=== PATIENT | female | born 1995 | race Caucasian/White ===

== ENCOUNTER 2018-02-17 11:32 | Inpatient (IN) ==
--- NOTE | 2018-02-17 12:22 | ED ---
History of Present Illness Primary Care Physician: No Primary Care Physician History of Present Illness: 22-year-old at term who reports spontaneous rupture membranes at 11 AM this morning. She reports mild contractions. No bleeding. She says that she was 4 cm in the clinic earlier this week. Review of Systems All other systems reviewed negative except as stated in HPI PMFSH - Medical / Surgical Hx Neg / Unobtainable Medical Problems Denied: Yes Surgical History: No Previous Surgery - Tobacco History Second Hand Smoke Exposure: Yes Smoking Status: Never smoker - Alcohol History How Often Do You Have a Drink Containing Alcohol: Never - Substance Use History Substance History: Past History (Marijuana) - Travel History History of Recent Travel: No Recent Travel in the [place] Within the Last 8 Weeks: No Recent Travel Out of the Country Within the Last 8 Weeks: No Medications and Allergies Allergies Allergy/AdvReac Type Severity Reaction Status Date / Time No Known Allergies Allergy Verified 02/17/18 12:02 Home Medications Medication Instructions Recorded Confirmed Type PNV #[id number] 1 tab PO DAILY 01/23/18 02/17/18 History Exam Vital signs: Vital Signs 02/17/18 11:54 Temperature 98.8 F Pulse Rate 93 H Respiratory Rate 18 Blood Pressure 99/55 L Intake & Output 02/16/18 02/17/18 02/17/18 18:59 06:59 18:59 Weight 67.807 kg Narrative: GENERAL: Well-nourished, well-developed patient. SKIN: Warm and dry. HEAD: Normocephalic and atraumatic. EYES: No scleral icterus. No injection or drainage. ENT: No nasal drainage noted. Mucous membranes pink. Airway patent. NECK: Supple, trachea midline. No JVD. CARDIOVASCULAR: Regular rate and rhythm without murmurs, gallops, or rubs. RESPIRATORY: Breath sounds equal bilaterally. No accessory muscle use. ABDOMEN/GI: Abdomen soft, non-tender, bowel sounds present, no rebound, no guarding Gravid to [-] weeks size Fundal Height: [-] GENITOURINARY: External Genitalia: intact and normal in appearance BUS glands: [-] Cervix: [-] Dilatation: [-3] Effacement: [-60] Station: [-2-] Presentation: [v-] Membranes: [ ruptured] Uterine Contractions: [-mild] FHT's: Category: [-1] Baseline: [-] Reactive: [-] Variability: [-] Decels: [-] EXTREMITIES: No cyanosis or edema. BACK: Nontender without obvious deformity. No CVA tenderness. NEUROLOGICAL: Awake and alert. Motor and sensory grossly within normal limits. Five out of 5 muscle strength in all muscle groups. Normal speech. Results - Labs Group B Strep: Negative Assessment and Plan - Plan Assessment: 22-year-old at 39+ weeks gestation with spontaneously ruptured membranes. Plan: Admit for labor management Discharge Plan - Discharge Disposition Patient Disposition: 30 Still Patient - Physicians Team ED Provider: Wilner Berrios Primary Care Provider: Primary Care Alida Larsen
[2018-02-17 12:26] VITALS: RESP 18
[2018-02-17] MEDS ORDERED: Sod Chloride 0.9% Inj 1,000 ML IV.CONT PRN (12:31)
[2018-02-17] MEDS ORDERED: Sodium Chlor 0.9% Inj 500 ML IV.SIG PRN (12:31)
[2018-02-17] MEDS ORDERED: fentaNYL Citrate Inj 100 MCG/2 ML Ampul IV.PUSH PRN ×2 (12:31)
[2018-02-17] MEDS ORDERED: Oxytocin 30 Units/500ml Premix 30 UNITS/500 ML BAG IV.SIG ONE (12:31)
[2018-02-17] MEDS ORDERED: Naloxone Inj 0.4 MG/ML Vial IV.PUSH PRN ×2 (12:31→22:57)
[2018-02-17] MEDS ORDERED: Oxytocin 30 Units/500ml Premix 30 UNITS/500 ML BAG IV.SIG PRN (12:34)
[2018-02-17] MEDS ORDERED: Citric Acid/Sodium Citrate Liq 30 ML UDC PO SCH (12:45)
[2018-02-17 13:14] LABS: Baso % (Auto) 0.4 % (0.0-2.0); Eos # (Auto) 0.1 th/mm3 (0.0-0.4); Eos % (Auto) 0.4 % (0.0-4.0); Hemoglobin 9.3 gm/dL (11.6-15.3); Lymph % (Auto) 14.9 % (9.0-44.0); Mean Corpuscular HGB Conc 33.2 % (32.0-36.0); Mean Corpuscular Hemoglobin 30.5 pg (27.0-34.0); Mean Corpuscular Volume 91.8 fL (80.0-100.0); Mean Platelet Volume 8.7 fL (7.0-11.0); Mono # (Auto) 1.3 th/mm3 (0.0-0.9); Mono % (Auto) 9.1 % (0.0-8.0); Neut # (Auto) 10.3 th/mm3 (1.8-7.7); Neut % (Auto) 75.2 % (16.0-70.0); Platelet Count 302 th/mm3 (150-450); Red Blood Count 3.05 mil/mm3 (4.00-5.30); Red Cell Distribution Width 15.4 % (11.6-17.2); White Blood Count 13.7 th/mm3 (4.0-11.0)
[2018-02-17 13:23] LABS: Amphetamine Screen,Urine Neg (Neg); Barbiturate Screen,Urine Neg (Neg); Cannabinoid Screen,Urine Pos (Neg); Cocaine Screen,Urine Neg (Neg)
[2018-02-17 13:24] LABS: Opiate Screen,Urine Neg (Neg)
[2018-02-17 13:44] LABS: Lymphocytes 15 % (9-44); Monocytes 8 % (0-8); Myelocytes 2 % (0-0); Tallied Nucleated RBC 1 (0-0)
[2018-02-17 13:46] LABS: Platelet Estimate Normal (Normal); Platelet Morphology Normal (Normal)
[2018-02-17] MEDS ORDERED: Diphtheria/Tetanus/Pertussis Vaccine Inj 0.5 ML Syringe IM ONE (16:00)
[2018-02-17] MEDS ORDERED: Measles/Mumps/Rubella Vaccine Inj 0.5 ML Vial SQ ONE (16:00)
--- NOTE | 2018-02-17 17:07 | P.HPOB ---
OB - ED Note Patient Name: Clayton Griggs Date of : [birth year] Patient Status: Inpatient Attending Provider: Wilner Berrios Date: 02/17/18 12:21 Initialization Date: 02/17/18 12:21 History of Present Illness Primary Care Physician: No Primary Care Physician History of Present Illness: 22-year-old at term who reports spontaneous rupture membranes at 11 AM this morning. She reports mild contractions. No bleeding. She says that she was 4 cm in the clinic earlier this week. Review of Systems All other systems reviewed negative except as stated in HPI PMFSH - Medical / Surgical Hx Neg / Unobtainable Medical Problems Denied: Yes Surgical History: No Previous Surgery - Tobacco History Second Hand Smoke Exposure: Yes Smoking Status: Never smoker - Alcohol History How Often Do You Have a Drink Containing Alcohol: Never - Substance Use History Substance History: Past History (Marijuana) - Travel History History of Recent Travel: No Recent Travel in the [place] Within the Last 8 Weeks: No Recent Travel Out of the Country Within the Last 8 Weeks: No Medications and Allergies Allergies Allergy/AdvReac Type Severity Reaction Status Date / Time No Known Allergies Allergy Verified 02/17/18 12:02 Home Medications Medication Instructions Recorded Confirmed Type PNV #[id number] [id number] 1 tab PO DAILY 01/23/18 02/17/18 History Exam Vital signs: Vital Signs 02/17/18 11:54 Temperature 98.8 F Pulse Rate 93 H Respiratory Rate 18 Blood Pressure 99/55 L Intake & Output 02/16/18 02/17/18 02/17/18 18:59 06:59 18:59 Weight 67.807 kg Narrative: GENERAL: Well-nourished, well-developed patient. SKIN: Warm and dry. HEAD: Normocephalic and atraumatic. EYES: No scleral icterus. No injection or drainage. ENT: No nasal drainage noted. Mucous membranes pink. Airway patent. NECK: Supple, trachea midline. No JVD. CARDIOVASCULAR: Regular rate and rhythm without murmurs, gallops, or rubs. RESPIRATORY: Breath sounds equal bilaterally. No accessory muscle use. ABDOMEN/GI: Abdomen soft, non-tender, bowel sounds present, no rebound, no guarding Gravid to [-] weeks size Fundal Height: [-] GENITOURINARY: External Genitalia: intact and normal in appearance BUS glands: [-] Cervix: [-] Dilatation: [-3] Effacement: [-60] Station: [-2-] Presentation: [v-] Membranes: [ ruptured] Uterine Contractions: [-mild] FHT's: Category: [-1] Baseline: [-] Reactive: [-] Variability: [-] Decels: [-] EXTREMITIES: No cyanosis or edema. BACK: Nontender without obvious deformity. No CVA tenderness. NEUROLOGICAL: Awake and alert. Motor and sensory grossly within normal limits. Five out of 5 muscle strength in all muscle groups. Normal speech. Results - Labs Group B Strep: Negative Assessment and Plan - Plan Assessment: 22-year-old at 39+ weeks gestation with spontaneously ruptured membranes. Plan: Admit for labor management Discharge Plan - Discharge Disposition Patient Disposition: 30 Still Patient - Physicians Team ED Provider: Wilner Berrios Primary Care Provider: Primary Care Alida Larsen
--- NOTE | 2018-02-17 17:12 | P.OBLABOR ---
Subjective Interval history: Notes increased ctx Objective Vital Signs: Vital Signs - 8 hr 02/17/18 11:54 02/17/18 13:19 02/17/18 13:30 Temperature 98.8 F Pulse Rate 93 H 79 79 Respiratory Rate 18 Blood Pressure 99/55 L 99/58 L 103/49 L 02/17/18 13:46 02/17/18 14:00 02/17/18 14:38 Temperature Pulse Rate 69 69 68 Respiratory Rate Blood Pressure 105/48 L 105/55 L 106/57 L 02/17/18 15:00 02/17/18 15:31 02/17/18 16:01 Temperature 98.2 F Pulse Rate 70 75 73 Respiratory Rate 18 Blood Pressure 108/60 104/52 L 107/62 02/17/18 17:02 Temperature Pulse Rate 89 Respiratory Rate Blood Pressure 72/34 L Objective: Pelvic Exam: Cervix: [not re-examined-] Dilatation: [-] Effacement: [-] Station: [-] Presentation: [-] Membranes: [intact or ruptured] Uterine Contractions: [-irreg] FHT's: Category: [-1] Baseline: [-] Reactive: [-] Variability: [-] Decels: [-] Assessment and Plan - Plan Assessment: Early labor with ruptured membranes Plan: Continue Pitocin augmentation
[2018-02-17] MEDS ORDERED: fentaNYL 2MCG-Bupiv 0.125% Epi 150 ML EPIDURAL ONE (19:01)
--- NOTE | 2018-02-17 22:56 | P.OBDELI ---
Medical Induction of Labor: No Artificial Rupture of Membrane: No Anesthesia: Epidural Vaginal Delivery: Normal Presentation: Occiput anterior Nuchal Cord: x1 Delayed Cord Clamping (45 sec): Yes Placenta: Spontaneous delivery, Intact Laceration: None Estimated blood loss (mL): 200 Infant: Female Additional Information: The patient pushed effectively to deliver the OA vertex over an intact perineum. There was no delay for the shoulders which were delivered by maternal effort. The remainder the infant followed easily and the baby was passed to the maternal abdomen were delayed cord clamping was accomplished. The placenta delivered spontaneously. It was grossly normal and apparently intact. There were no lacerations. Hemostasis was obtained with massage and IV Pitocin solution.
[2018-02-17] MEDS ORDERED: Witch Hazel 50%/Glyderin 12.5% 40 Pad Jar RECTAL PRN (22:57)
[2018-02-17] MEDS ORDERED: Benzocaine 20% Top Spray 60 ML Can TOPICAL PRN (22:57)
[2018-02-17] MEDS ORDERED: Zolpidem Tartrate 5 MG Tablet PO PRN (22:57)
[2018-02-17] MEDS ORDERED: Bisacodyl 10 MG Supp RECTAL PRN (22:57)
[2018-02-17] MEDS ORDERED: Oxytocin 30 Units/500ml Premix 30 UNITS/500 ML BAG IV.CONT SCH (23:00)
[2018-02-18] MEDS: Acetaminophen 325 MG Tablet PO PRN ×2 (00:23→19:46)
[2018-02-18] MEDS ORDERED: Senna/Docusate Sodium 8.6/50 MG Tablet PO SCH (09:00)
--- NOTE | 2018-02-18 09:10 | P.PNOB ---
Subjective Post day: 1 Interval history: Patient is a 22-year-old delivered at 41 weeks and 2 days. Patient is day 1 after . Patient's pain is well-controlled. Patient reports eating and drinking without any nausea or vomiting. Patient reports minimal bleeding. Patient has passed gas but no bowel movements. Patient is walking without lower extremity pain or shortness of breath. Patient reports desire for contraception and formula. Objective Vital Signs/I&O: Vital Signs 02/17/18 11:54 02/17/18 13:19 02/17/18 13:30 Temperature 98.8 F Pulse Rate 93 H 79 79 Respiratory Rate 18 Blood Pressure 99/55 L 99/58 L 103/49 L 02/17/18 13:46 02/17/18 14:00 02/17/18 14:38 Temperature Pulse Rate 69 69 68 Respiratory Rate Blood Pressure 105/48 L 105/55 L 106/57 L 02/17/18 15:00 02/17/18 15:31 02/17/18 16:01 Temperature 98.2 F Pulse Rate 70 75 73 Respiratory Rate 18 Blood Pressure 108/60 104/52 L 107/62 02/17/18 17:02 02/17/18 17:07 02/17/18 17:31 Temperature Pulse Rate 89 79 68 Respiratory Rate Blood Pressure 72/34 L 93/52 L 95/49 L 02/17/18 17:45 02/17/18 18:01 02/17/18 18:25 Temperature 98.3 F Pulse Rate 72 86 Respiratory Rate 19 Blood Pressure 96/54 L 02/17/18 18:30 02/17/18 18:55 02/17/18 19:30 Temperature Pulse Rate 73 73 67 Respiratory Rate 18 Blood Pressure 93/45 L 129/67 123/98 H 02/17/18 19:45 02/17/18 20:00 02/17/18 20:15 Temperature Pulse Rate 134 H 66 Respiratory Rate 18 18 18 Blood Pressure 126/93 H 124/69 02/17/18 20:54 02/17/18 21:17 02/17/18 21:45 Temperature 98.1 F 97.8 F Pulse Rate 70 110 H Respiratory Rate 18 20 Blood Pressure 118/69 112/67 02/18/18 01:00 02/18/18 08:00 Temperature 97.8 F 97.8 F Pulse Rate 73 66 Respiratory Rate 16 16 Blood Pressure 107/61 123/76 Intake & Output 02/17/18 02/18/18 02/18/18 18:59 06:59 18:59 Weight 67.585 kg Other: Weight On Admission 67.807 kg Result Diagrams: 02/17/18 12:35 Objective Remarks: GENERAL: Well-nourished, well-developed patient. CARDIOVASCULAR: Regular rate and rhythm without murmurs, gallops, or rubs. RESPIRATORY: Breath sounds equal bilaterally. No accessory muscle use. ABDOMEN/GI: Abdomen soft, non-tender. Fundus: Firm, non-tender at umbilicus. GENITOURINARY: Light to moderate bleeding. EXTREMITIES: No cyanosis or edema, non-tender, without signs of DVT. Medications and IVs: Active Medications Acetaminophen (Tylenol) 650 mg PO Q4H PRN PRN Reason: PAIN SCALE 1 TO 2 Last Admin: 02/18/18 00:23 Dose: 650 mg Al Hydroxide/Mg Hydroxide (Milk Of Magnesia Liq) 30 ml PO Q12H PRN PRN Reason: Mild Constipation Benzocaine (Americaine 20% Top [place]) 1 spray TOPICAL Q4H PRN PRN Reason: For Perineum Discomfort Last Admin: 02/18/18 00:22 Dose: 1 spray Bisacodyl (Dulcolax Supp) 10 mg RECTAL DAILY PRN PRN Reason: SEVERE CONSITIPATION Citric Acid/Sodium Citrate (Sodium Citrate/Citric Acid Liq) 30 ml PO [facility] Stop: 02/21/18 12:44 Fentanyl Citrate (Fentanyl Inj) 50 mcg IV.PUSH Q1H PRN PRN Reason: Pain Scale 3 - 5 Fentanyl Citrate (Fentanyl Inj) 100 mcg IV.PUSH Q1H PRN PRN Reason: PAIN SCALE 6 TO 10 Lactated Ringer's (Lr 1000 Ml Inj) 1,000 mls @ 125 mls/hr IV.CONT .Q8H [facility] Lactated Ringer's (Lr 1000 Ml Inj) 1,000 mls @ 3,000 mls/hr IV.SIG UNSCH PRN PRN Reason: compromise or epidural Sodium Chloride (Ns Inj) 500 mls @ 1,000 mls/hr IV.SIG UNSCH PRN PRN Reason: SEE LABEL COMMENTS Sodium Chloride (Ns Inj) 1,000 mls @ 100 mls/hr IV.CONT .Q10H PRN PRN Reason: SEE LABEL COMMENTS Oxytocin (Pitocin 30 Units/Ns 500 Ml Premix) 30 units in 500 mls @ 2 mls/hr IV.SIG TITRATE PRN; Protocol PRN Reason: For induction of labor Last Admin: 02/17/18 13:16 Dose: 2 milliunit/min, 2 mls/hr Ibuprofen (Motrin) 800 mg PO Q8H PRN PRN Reason: For cramping Last Admin: 02/18/18 00:22 Dose: 800 mg Lactulose (Lactulose Liq) 30 ml PO DAILY PRN PRN Reason: SEVERE CONSITIPATION Lidocaine HCl (Xylocaine 1% Inj) 0.1 ml I-DERMAL PRN PRN PRN Reason: For IV start Stop: 02/20/18 12:30 Lidocaine HCl (Xylocaine 1% Inj) 10 ml INFILTRATN PRN PRN PRN Reason: For episiotomy repair Stop: 02/19/18 12:30 Mineral Oil (Muri-Lube Oil) 10 ml TOPICAL PRN PRN PRN Reason: PRN perineal massage Naloxone HCl (Narcan Inj) 0.1 mg IV.PUSH Q2M PRN PRN Reason: for opiate reversal Naloxone HCl (Narcan Inj) 0.1 mg IV.PUSH Q2M PRN PRN Reason: for opiate reversal Ondansetron HCl (Zofran Inj) 4 mg IV.PUSH Q6H PRN PRN Reason: NAUSEA OR VOMITING Ondansetron HCl (Zofran Odt) 4 mg PO Q6H PRN PRN Reason: NAUSEA OR VOMITING Oxycodone/Acetaminophen (Percocet 5/325 Mg) 2 tab PO Q4H PRN PRN Reason: PAIN SCALE 6 TO 10 Last Admin: 02/18/18 03:59 Dose: 2 tab Senna/Docusate Sodium (Lucita-Colace) 1 tab PO BID EDUARDO Sennosides (Senokot) 17.2 mg PO Q12H PRN PRN Reason: Moderate Constipation Sodium Chloride (Ns Flush) 2 ml IV.FLUSH BID EDUARDO Sodium Chloride (Ns Flush) 2 ml IV.FLUSH PRN PRN PRN Reason: FLUSH AFTER USING IV ACCESS [place]/Glycerin (Tucks Pads) 1 applicatio RECTAL QID PRN PRN Reason: HEMORRHOIDS Last Admin: 02/18/18 00:22 Dose: 1 applicatio Zolpidem Tartrate (Ambien) 5 mg PO HS PRN PRN Reason: SLEEP Assessment and Plan - Attending Attestation The exam, history, and the medical decision-making described in the above note were completed with the assistance of the resident physician. I reviewed and agree with the findings presented. I attest that I had a [id number] encounter with the patient on the same day, and personally performed and documented my assessment and findings in the medical record.
[2018-02-19] MEDS: Acetaminophen 325 MG Tablet PO PRN (05:56)
--- NOTE | 2018-02-19 07:10 | P.PNOB ---
Subjective Post day: 2 Interval history: Patient is a 22-year-old delivered at 41 weeks and 2 days. Patient is day 2 after . Patient's pain is well-controlled. Patient reports eating and drinking without any nausea or vomiting. Patient reports minimal bleeding. Patient has passed gas but no bowel movements. Patient is walking without lower extremity pain or shortness of breath. Patient reports desire for contraception outpatient and formula. Objective Vital Signs/I&O: Vital Signs 02/18/18 08:00 02/18/18 19:46 Temperature 97.8 F 98.1 F Pulse Rate 66 55 L Respiratory Rate 16 18 Blood Pressure 123/76 128/83 Result Diagrams: 02/17/18 12:35 Objective Remarks: GENERAL: Well-nourished, well-developed patient. CARDIOVASCULAR: Regular rate and rhythm without murmurs, gallops, or rubs. RESPIRATORY: Breath sounds equal bilaterally. No accessory muscle use. ABDOMEN/GI: Abdomen soft, non-tender. Fundus: Firm, non-tender at umbilicus. GENITOURINARY: Light to moderate bleeding. EXTREMITIES: No cyanosis or edema, non-tender, without signs of DVT. Medications and IVs: Active Medications Acetaminophen (Tylenol) 650 mg PO Q4H PRN PRN Reason: PAIN SCALE 1 TO 2 Last Admin: 02/19/18 05:56 Dose: 650 mg Al Hydroxide/Mg Hydroxide (Milk Of Magnesia Liq) 30 ml PO Q12H PRN PRN Reason: Mild Constipation Benzocaine (Americaine 20% Top [place]) 1 spray TOPICAL Q4H PRN PRN Reason: For Perineum Discomfort Last Admin: 02/18/18 00:22 Dose: 1 spray Bisacodyl (Dulcolax Supp) 10 mg RECTAL DAILY PRN PRN Reason: SEVERE CONSITIPATION Citric Acid/Sodium Citrate (Sodium Citrate/Citric Acid Liq) 30 ml PO [facility] Stop: 02/21/18 12:44 Fentanyl Citrate (Fentanyl Inj) 50 mcg IV.PUSH Q1H PRN PRN Reason: Pain Scale 3 - 5 Fentanyl Citrate (Fentanyl Inj) 100 mcg IV.PUSH Q1H PRN PRN Reason: PAIN SCALE 6 TO 10 Lactated Ringer's (Lr 1000 Ml Inj) 1,000 mls @ 125 mls/hr IV.CONT .Q8H [facility] Lactated Ringer's (Lr 1000 Ml Inj) 1,000 mls @ 3,000 mls/hr IV.SIG UNSCH PRN PRN Reason: compromise or epidural Sodium Chloride (Ns Inj) 500 mls @ 1,000 mls/hr IV.SIG UNSCH PRN PRN Reason: SEE LABEL COMMENTS Sodium Chloride (Ns Inj) 1,000 mls @ 100 mls/hr IV.CONT .Q10H PRN PRN Reason: SEE LABEL COMMENTS Oxytocin (Pitocin 30 Units/Ns 500 Ml Premix) 30 units in 500 mls @ 2 mls/hr IV.SIG TITRATE PRN; Protocol PRN Reason: For induction of labor Last Admin: 02/17/18 13:16 Dose: 2 milliunit/min, 2 mls/hr Ibuprofen (Motrin) 800 mg PO Q8H PRN PRN Reason: For cramping Last Admin: 02/19/18 05:55 Dose: 800 mg Lactulose (Lactulose Liq) 30 ml PO DAILY PRN PRN Reason: SEVERE CONSITIPATION Lidocaine HCl (Xylocaine 1% Inj) 0.1 ml I-DERMAL PRN PRN PRN Reason: For IV start Stop: 02/20/18 12:30 Lidocaine HCl (Xylocaine 1% Inj) 10 ml INFILTRATN PRN PRN PRN Reason: For episiotomy repair Stop: 02/19/18 12:30 Mineral Oil (Muri-Lube Oil) 10 ml TOPICAL PRN PRN PRN Reason: PRN perineal massage Naloxone HCl (Narcan Inj) 0.1 mg IV.PUSH Q2M PRN PRN Reason: for opiate reversal Naloxone HCl (Narcan Inj) 0.1 mg IV.PUSH Q2M PRN PRN Reason: for opiate reversal Ondansetron HCl (Zofran Inj) 4 mg IV.PUSH Q6H PRN PRN Reason: NAUSEA OR VOMITING Ondansetron HCl (Zofran Odt) 4 mg PO Q6H PRN PRN Reason: NAUSEA OR VOMITING Oxycodone/Acetaminophen (Percocet 5/325 Mg) 2 tab PO Q4H PRN PRN Reason: PAIN SCALE 6 TO 10 Last Admin: 02/18/18 03:59 Dose: 2 tab Senna/Docusate Sodium (Lucita-Colace) 1 tab PO BID [facility] Last Admin: 02/18/18 21:23 Dose: Not Given Sennosides (Senokot) 17.2 mg PO Q12H PRN PRN Reason: Moderate Constipation Sodium Chloride (Ns Flush) 2 ml IV.FLUSH BID [facility] Last Admin: 02/18/18 21:23 Dose: Not Given Sodium Chloride (Ns Flush) 2 ml IV.FLUSH PRN PRN PRN Reason: FLUSH AFTER USING IV ACCESS [place]/Glycerin (Tucks Pads) 1 applicatio RECTAL QID PRN PRN Reason: HEMORRHOIDS Last Admin: 02/18/18 00:22 Dose: 1 applicatio Zolpidem Tartrate (Ambien) 5 mg PO HS PRN PRN Reason: SLEEP Assessment and Plan - Diagnosis (1) Vaginal delivery Code(s): O80 - Encounter for full-term uncomplicated delivery Status: Acute Plan: Patient is a 22-year-old delivered at 41 weeks and 2 days. Patient is day 2 after . Patient was counseled to do 6 weeks of pelvic rest. Patient was counseled to follow up in 6 weeks. Patient requested follow-up and contraception outpatient. --Continue routine care --Motrin and Tylenol when necessary for pain --Encourage OOB --Pelvic rest for 6 weeks will need follow-up appointment at that time. --Contraception: IUD outpatient --discharge today
[2018-02-19 20:53] VITALS: BP 111/73; PULSE 57; TEMP 98.1
== END 2018-02-19 13:17 | disposition home or self-care (01) ==
LOC: HOBED 11:32 → H2E 12:23 → H1EA 22:22
PROVIDERS: ADMIT Obstetrics & Gynecology; ATTEND Obstetrics & Gynecology